=== PATIENT | female | born 1985 | race African-American/Black ===

== ENCOUNTER 2020-11-17 14:08 | Emergency (ER) | payer OTHER ==
[~2020-11-17] VITALS: Ht 152.4 cm; Wt 121.7 kg
[2020-11-17] MEDS ORDERED: KETOROLAC 15 MG/ML VIAL. IM ONE (16:30)
--- NOTE | 2020-11-17 17:15 | RAD ---
Study: XR KNEE 3 VIEWS_RT Indication: Fall. Comparison: None. Findings: Possible subtle cortical irregularity at the lateral margin of the fibular head. No discrete fracture of the imaged femur or tibia. The patella is intact. Relative patella baja favored most likely relat ed to knee flexion on the lateral view. Advanced medial compartment joint space narrowing not quite b one-on-bone. Medial joint line osteophytes. Limited assessment for a knee joint effusion on the later al view. Impression: 1. Possible very subtle cortical irregularity at the lateral margin of the fibular head. This may be chronic or artifactual but recommend correlation for pinpoint tenderness to suggest a nondisplaced fr acture. No evidence for acute osseous injury elsewhere. 2. Age accelerated medial compartment joint space narrowing which is not quite [id number]. Medial j oint line osteophytes noted as well. 3. Limited assessment for a knee joint effusion given flexion on the lateral view. Electronically signed by: ROZ SOLITARIO MD (11/17/2020 5:13 PM) [facility]
[2020-11-17] MEDS ORDERED: NAPR500T8 PO (17:44)
--- NOTE | 2020-11-17 17:45 | PHYS DOC ---
Past Medical History Past Surgical History: Cholecystectomy, Tubal ligation (FRAN BENSON) Smoking Status: Never Smoker Alcohol Use: None (FRAN BENSON) General Adult EDM: Chief Complaint: MECHANICAL FALL HPI: HPI: Patient is a 35 year old female who presents with 3-day history of right knee pain. 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 She states she attempted to catch herself, but fell onto her right knee. She describes the pain as a constant ache that radiates both up to her hip and down to her ankle. She states the pain is worse with walking, as it becomes very "tight" when she bends her knee. She has massaged the knee at home without symptom relief. She has not attempted to take any medications to this point. She denies any head trauma, loss of consciousness or other joint pain. (FRAN BENSON) Review of Systems: Review of Systems: Constitutional: Denies fever or chills. Respiratory: Denies cough or shortness of breath. Cardiovascular: Denies chest pain or edema. Musculoskeletal: See HPI Integument: Denies rash, abrasion or laceration. Neurologic: Denies headache, focal weakness or sensory changes. (FRAN BENSON) Heart Score: C/O Chest Pain: No (FRAN BENSON) Current Medications: Current Medications Medications (Trade) Dose Ordered Sig/Troy Start Time Stop Time Status Last Admin Dose Admin Ketorolac Tromethamine (Toradol 15mg Vial) 15 mg 1X ONCE 11/17/20 16:30 11/17/20 16:31 DC (FRAN BENSON) Allergies: Allergies: Allergies Coded Allergies Type Severity Reaction Last Updated Verified Penicillins Allergy Severe Anaphylaxis 11/17/20 Yes (FRAN BENSON) Physical Exam: PE: Constitutional: Well developed, well nourished, no acute distress, non-toxic appearance. Neck: Normal range of motion, no tenderness, supple, no stridor. Cardiovascular:Heart rate regular rhythm, no murmur. Lungs & Thorax: Bilateral breath sounds clear to auscultation. Skin: Warm, dry, no erythema, no rash. Back: No tenderness, no CVA tenderness. Extremities: Right knee difficult to evaluate due to patient's body habitus, exam was also limited secondary to patient being unable to flex right her leg at all, the knee is tender to the superior and medial aspects anteriorly. Otherwise extremities are with no tenderness, no cyanosis, no clubbing, ROM intact, no edema. Neurologic: Alert and oriented x3, normal motor function, normal sensory function, no focal deficits noted. (FRAN BENSON) Current Patient Data: Vital Signs: Vital Signs Date Time Temp Pulse Resp B/P (MAP) Pulse Ox O2 Delivery O2 Flow Rate FiO2 11/17/20 15:57 98.9 129 14 161/104 (123) 98 Room Air 98.9 (FRAN BENSON) Radiology/Procedures: Radiology/Procedures: PROCEDURE: KNEE RIGHT 3V Study: XR KNEE 3 VIEWS_RT Indication: Fall. Comparison: None. Findings: Possible subtle cortical irregularity at the lateral margin of the fibular head. No discrete fracture of the imaged femur or tibia. The patella is intact. Relative patella baja favored most likely related to knee flexion on the lateral view. Advanced medial compartment joint space narrowing not quite [id number]. Medial joint line osteophytes. Limited assessment for a knee joint effusion on the lateral view. Impression: 1. Possible very subtle cortical irregularity at the lateral margin of the fibular head. This may be chronic or artifactual but recommend correlation for pinpoint tenderness to suggest a nondisplaced fracture. No evidence for acute osseous injury elsewhere. 2. Age accelerated medial compartment joint space narrowing which is not quite [id number]. Medial joint line osteophytes noted as well. 3. Limited assessment for a knee joint effusion given flexion on the lateral view. Electronically signed by: ROZ SOLITARIO MD (11/17/2020 5:13 PM) [facility] (FRAN BENSON) Course & Med Decision Making: Course & Med Decision Making Pertinent Labs and Imaging studies reviewed. (See chart for details) There are not any obvious fractures on x-ray, and as patient has no point tenderness, she will be placed in an Roderick wrap and discharged with instructions to follow-up with Dr. Bear with orthopedics. Patient was given rice instructions as well as a prescription for 500 mg naproxen. Patient is agreeable to discharge plan and understands follow-up is necessary at this time. (FRAN BENSON) Dragon Disclaimer: Dragon Disclaimer: This electronic medical record was generated, in whole or in part, using a voice recognition dictation system. (FRAN BENSON) Departure Departure Impression: Primary Impression: Contusion of knee, right Qualified Codes: S80.01XA - Contusion of right knee, initial encounter Disposition: HOME / SELF CARE / HOMELESS Condition: STABLE Referrals: UNKNOWN PCP NAME (PCP) MARI BEAR DO Patient Instructions: RICE - Routine Care for Injuries, Pxvx-[id number] Additional Instructions: Today's x-rays do not show any obvious fractures of your knee. You may follow- up with orthopedic doctor listed above for further soft tissue evaluation of your injury. Until that time, please rest your knee, use ice for 20 minutes at a time, wrap the knee with a Roderick bandage, and elevate your knee above the level of your hip as often as possible. Return to the emergency department if your pain worsens or you show signs of compartment syndrome (pale/cold skin, numbness and tingling, loss of pulses). Scripts Naproxen (NAPROXEN) 500 Mg Tablet.dr 1 TAB PO BID for pain and inflammation, #20 TAB 1 Refill Take 1 tablet twice a day as needed for pain. 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 I was available for consultation as needed during the patient's visit in the emergency department. I agree with the clinical impression, plan, and disposition. (RASHIDA YOST DO) FRAN BENSON Nov 17, 2020 17:44 RASHIDA YOST DO Nov 20, 2020 22:38
[2020-11-17 17:53] VITALS: BP 161/104
== END 2020-11-17 17:53 | disposition home or self-care (01) ==
LOC: ER 14:08
DX: S80.01XA Contusion of right knee, initial encounter (principal); Z88.0 Allergy status to penicillin; W10.8XXA Fall (on) (from) other stairs and steps, initial encounter; Y93.89 Activity, other specified; Y92.89 Other specified places as the place of occurrence of the external cause; Y99.8 Other external cause status
CPT/HCPCS: 73562; 96372; 99283; J1885